=== PATIENT | female | born 1940 | race Two or more races ===

== ENCOUNTER 2025-02-09 16:27 | Emergency (ER) | payer OTHER ==
[~2025-02-09] VITALS: Ht 167.6 cm; Wt 63.5 kg
--- NOTE | 2025-02-09 16:50 | ED.PDOC ---
Musculoskeletal HPI Comments 84 y.o female presents to the ED for an evaluation of left foot swelling that started one week ago s/p stubbing greater toe. Patient reports PCP placed her on Tetracycline and finished course 2 days ago. Patient denies any pain, erythema, fever, or chills. Chief Complaint: Extremity Swelling Time Seen by MD: 16:34 Reviewed Notes: Nurses Notes, Medications, Allergies Allergies: Coded Allergies: Codeine (Verified Allergy, Unknown, 02/09/25) Information Source: Patient Mode of Arrival: Ambulatory Location: Left Extremity Location: Foot Timing: Weeks (1) Severity: Mild Able to Move Extremity: Yes Bear Weight: Fully Pain: None Mechanism: None Circumstances: Tripped Onset of Symptoms: After Trauma Symptoms: Swelling DVT Risk Factors: NONE Associated signs and symptoms: Swelling Past Medical History PAST MEDICAL HISTORY: High Lipids, HTN Surgical History: Denies all surgeries STAMP CLASSIFIER History: No Pertinent STAMP CLASSIFIER History Family History Family History: Reviewed,noncontributory to illness Social History Smoker: Non-Smoker Alcohol: Denies ETOH Use Drugs: Denies Drug Use Lives In: Home Constitutional: denies: chills, diaphoresis, fatigue, fever, malaise, sweats, weakness, others EENTM: denies: blurred vision, double vision, ear bleeding, ear discharge, ear drainage, ear pain, ear ringing, eye pain, eye redness, hearing loss, mouth pain, mouth swelling, nasal discharge, nose bleeding, nose congestion, nose pain, photophobia, tearing, throat pain, throat swelling, voice changes, others Respiratory: denies: cough, hemoptysis, orthopnea, SOB at rest, shortness of breath, SOB with excertion, stridor, wheezing, others Cardiovascular: denies: chest pain, dizzy spells, diaphoresis, Dyspnea on exertion, edema, irregular heart beat, left arm pain, lightheadedness, palpitations, PND, syncope, others Gastrointestinal: denies: abdomen distended, abdominal pain, blood streaked bowels, constipated, diarrhea, dysphagia, difficulty swallowing, hematemesis, melena, nausea, poor appetite, poor fluid intake, rectal bleeding, rectal pain, vomiting, others Genitourinary: denies: abnormal vagina bleeding, burning, dyspareunia, dysuria, flank pain, frequency, hematuria, incontinence, pain, , vagina discharge, urgency, others Neurological: denies: dizziness, fainting, headache, left sided numbness, left sided weakness, numbness, paresthesia, pre-existing deficit, right sided numbness, right sided weakness, seizure, speech problems, tingling, tremors, weakness, others Musculoskeletal: reports: others (left foot, greater toe swelling ); denies: back pain, gout, joint pain, joint swelling, muscle pain, muscle stiffness, neck pain Integumetry: denies: bruises, change in color, change in hair/nails, dryness, laceration, lesions, lumps, rash, wounds, others Allergic/Immunocompromised: denies: Difficulty Healing, Frequent Infections, Hives, Itching, others Hematologic/Lymphatic: denies: anemia, blood clots, easy bleeding, easy bruising, swollen glands, others Endocrine: denies: excessive hunger, excessive sweating, excessive thirst, excessive urination, flushing, intolerance to cold, intolerance to heat, unexplained weight gain, unexplained weight loss, others Psychiatric: denies: anxiety, bipolar disorder, depression, hopeless, panic disorder, schizophrenia, sleepless, suicidal, others All Other Systems: Reviewed and Negative Physical Exam General Appearance: No Apparent Distress, Normal HEENT: Normal ENT Inspection, Pharynx Normal, TMs Normal Neck: Full Range of Motion, Non-Tender, Normal, Normal Inspection Respiratory: Chest Non-Tender, Lungs Clear, No Accessory Muscle Use, No Respiratory Distress, Normal Breath Sounds Cardiovascular: No Edema, No JVD, No Murmur, No Gallop, Normal Peripheral Pulses, Regular Rate/Rhythm Breast Exam: Deferred Gastrointestinal: No Organomegaly, Non Tender, No Pulsatile Mass, Normal Bowel Sounds, Soft Genitalia: Deferred Pelvic: Deferred Rectal: Deferred Extremities: Normal capillary refill, Normal inspection, Normal range of motion, No pedal edema, Other (no calf tenderness, bruising, pedal edema ) Musculoskeletal : Apperance: Normal Neurologic: Alert, fluorescent solution mixer II-XII nml as Tested, No Motor Deficits, Normal Affect, Normal Mood, No Sensory Deficits Cerebellar Function: Normal Reflexes: Normal Skin: Dry, Normal Color, Warm Lymphatic: No Adenopathy Was a procedure done? Was a procedure done?: No Differential Diagnosis EXT Differential Diagnosis: Cellulitis, Deep Vein Thrombosis, Fracture, Sprain, Dislocation, DJD, Contusion, Strain, Neurovascular injury, Arthritis X-Ray, Labs, Meds, VS Vital Signs Date Time Temp Pulse Resp B/P (MAP) Pulse Ox O2 Delivery O2 Flow Rate FiO2 02/09/25 16:45 98.9 95 16 181/106 (131) 96 98.9 180/89 (119) Time of 1ST Reevaluation: 16:38 Reevaluation 1ST: Unchanged Patient Education/Counseling: Diagnosis, Treatment, Prognosis, Need For Follow Up Family Education/Counseling: No Family Present Additional Information Previous visit: None The following tests were ordered, and results were reviewed by me: Left foot X ray Additional Information was gathered from interviewing the following independent historians: None I reviewed and agreed with the following test results read by other providers: Left foot X ray I discussed treatment and results with medical personnel and: Patient Comprehensive systems review obtained and negative except for what is stated in the HPI. pt has no dvt risk factors. she feels the ankles are swollen, but there is no appreciable edema, no tenderness, no bruising, no redness. she has no calf tenderness, no leg asymmetry. xray is unremarkable. i do not suspect dvt. she denies pain or discomfort. she is stable for discharge Departure 1 Departure Time of Disposition: 18:13 Impression: Primary Impression: Feared condition not demonstrated Additional Impression: Left ankle strain Disposition: 01 HOME / SELF CARE / HOMELESS Condition: Good Discharged With: Self Critical Care Note Critical Care Time?: No Stability Stability form required: No I personally scribed for WILL ROCHA MD ([email or web address]) on 02/09/25 at 16:50. Electronically submitted by Cristina Byrd ([facility]). WILL ROCHA MD Feb 09, 2025 16:50
--- NOTE | 2025-02-09 16:59 | DVH ---
XY L ANKLE 3 VIEW, INDICATION: ankle inury TECHNICAL DATA:Frontal , oblique and lateral views were obtained of the left ankle. COMPARISON: None FINDINGS: No fracture is identified. Joint spaces are maintained. Alignment is anatomic. Soft tissues are wit hin normal limit. IMPRESSION: No acute fracture or dislocation of the left ankle.
--- NOTE | 2025-02-09 19:33 | DVH ---
Left lower extremity venous duplex Clinical History: r/o dvt Comparison: None Technique: Duplex Doppler evaluation of the deep venous system of the left lower extremity from the common femor al vein to the popliteal vein including color Doppler and spectral/pulsed waveform analysis was perfo rmed. Findings: The common femoral vein demonstrates appropriate compressibility and waveform variability. There is compressibility/patency of the great saphenous vein at the proximal thigh. The femoral vein demonstrates appropriate compressibility and waveform variability. The deep femoral vein demonstrates appropriate compressibility and waveform variability. The popliteal vein demonstrates appropriate compressibility and waveform variability. There is normal compressibility at the tibioperoneal trunk. An irregular fluid collection measuring 6.4 x 2.6 x 1.7 cm noted in left popiteal fossa consistent wi th Merino's cyst. Impression: No evidence of left femoropopliteal venous thrombosis.
[2025-02-09 19:43] VITALS: BP 154/98; PULSE 91; RESP 17; TEMP 98.2; O2SAT 100
== END 2025-02-09 19:47 | disposition home or self-care (01) ==
LOC: ER 16:27
DX: S96.912A Strain of unspecified muscle and tendon at ankle and foot level, left foot, initial encounter (principal); Z71.1 Person with feared health complaint in whom no diagnosis is made; E78.5 Hyperlipidemia, unspecified; I10 Essential (primary) hypertension; Z88.5 Allergy status to narcotic agent; X50.9XXA Other and unspecified overexertion or strenuous movements or postures, initial encounter; Y93.89 Activity, other specified; Y92.89 Other specified places as the place of occurrence of the external cause; Y99.8 Other external cause status
CPT/HCPCS: 73610; 93971